=== PATIENT | male | born 1970 | race American Indian/Alaskan Native ===

== ENCOUNTER 2017-01-16 08:29 | Emergency (ER) | payer SELFPAY ==
[2017-01-16 09:43] LABS: Basophils % (Auto) 0.8 % (0.0-1.8); Eosinophils % (Auto) 1.2 % (0.0-4.3); Hemoglobin 14.4 gm/dl (11.8-15.2); Mean Corpuscular HGB Conc 32 % (32-34); Mean Corpuscular Hemoglobin 29 pg (28-32); Mean Corpuscular Volume 90 fl (84-94); Red Blood Count 4.98 M/mm3 (3.65-5.03); Red Cell Distribution Width 13.6 % (13.2-15.2); White Blood Count 10.6 K/mm3 (4.5-11.0)
[2017-01-16 09:48] LABS: Alanine Aminotransferase 26 units/L (7-56); Albumin 4.5 g/dL (3.9-5); Albumin/Globulin Ratio 1.5 %; Alkaline Phosphatase 105 units/L (35-129); Anion Gap 28 mmol/L; Blood Urea Nitrogen 16 mg/dL (9-20); Calcium 9.5 mg/dL (8.4-10.2); Carbon Dioxide 17 mmol/L (22-30); Chloride 99.4 mmol/L (98-107); Glucose 174 mg/dL (75-100); Lipase 41 units/L (13-60); Sodium 140 mmol/L (137-145); Total Protein 7.6 g/dL (6.3-8.2)
[2017-01-16] MEDS ORDERED: ZOFRAN IV ONE (10:17)
[2017-01-16] MEDS ORDERED: NACL 0.9% 1000 ML 1,000 ML IV ONE (10:42)
[2017-01-16] MEDS ORDERED: BENTYL IM ONE (10:42)
[2017-01-16] MEDS ORDERED: ATIVAN IV ONE (10:43)
--- NOTE | 2017-01-16 10:46 | Emergency Department Report ---
ED N/V/D HPI - General Chief complaint: Abdominal Pain Stated complaint: VOMITTING, COLD Time Seen by Provider: 01/16/17 10:41 Source: patient, family Mode of arrival: Wheelchair Limitations: No Limitations - History of Present Illness Initial comments: 46-year-old male with history of [id number] diabetes presenting today because of vomiting and abdominal pain. Patient states that he's had these episodes periodically every 4-6 months for the last many years. There has not been any clear reason for them. They usually resolve while he is in the emergency room. No fevers or chills. Cannot recall eating anything unusual. The symptoms started early in the morning and are primarily his nausea and vomiting nonbloody nonbilious. No associated dysuria or hematuria. - Related Data Home Medications Medication Instructions Recorded Confirmed Last Taken No Known Home Medications [No 01/16/17 01/16/17 Unknown Reported Home Medications] Allergies Allergy/AdvReac Type Severity Reaction Status Date / Time No Known Allergies Allergy Verified 01/16/17 08:49 ED Review of Systems ROS: Stated complaint: VOMITTING, COLD Other details as noted in HPI Comment: All other systems reviewed and negative Constitutional: denies: chills, fever Respiratory: denies: cough Cardiovascular: denies: chest pain Gastrointestinal: denies: nausea, vomiting Skin: denies: rash Neurological: denies: headache Psychiatric: denies: anxiety ED Past Medical Hx - Past Medical History Hx Diabetes: Yes (diet-controlled) - Surgical History Past Surgical History?: No - Social History Smoking Status: Current Every Day Smoker Substance Use Type: None - Medications Home Medications: Home Medications Medication Instructions Recorded Confirmed Last Taken Type No Known Home Medications [No 01/16/17 01/16/17 Unknown History Reported Home Medications] ED Physical Exam - General Limitations: No Limitations General appearance: alert, in distress, other (diaphoretic) - Head Head exam: Present: atraumatic - Eye Eye exam: Present: normal appearance - Neck Neck exam: Present: normal inspection - Respiratory Respiratory exam: Present: normal lung sounds bilaterally, other (tachypnic) - Cardiovascular Cardiovascular Exam: Present: regular rate, normal rhythm, normal heart sounds - GI/Abdominal GI/Abdominal exam: Present: soft. Absent: distended, tenderness - Neurological Exam Neurological exam: Present: alert, oriented X3 - Psychiatric Psychiatric exam: Present: normal affect - Skin Skin exam: Present: intact ED Course Vital Signs 01/16/17 01/16/17 01/16/17 08:52 10:05 11:00 Temperature 97.7 F Pulse Rate 76 Respiratory 29 H Rate Blood Pressure 120/71 O2 Sat by Pulse 99 100 100 Oximetry 01/16/17 01/16/17 01/16/17 12:00 13:00 14:00 Temperature Pulse Rate Respiratory Rate Blood Pressure 121/78 104/63 117/76 O2 Sat by Pulse 100 100 98 Oximetry 01/16/17 01/16/17 01/16/17 15:00 16:00 17:00 Temperature Pulse Rate Respiratory Rate Blood Pressure 112/63 125/62 115/64 O2 Sat by Pulse 99 100 100 Oximetry 01/16/17 17:18 Temperature 98.3 F Pulse Rate 56 L Respiratory 16 Rate Blood Pressure O2 Sat by Pulse Oximetry - Reevaluation(s) Reevaluation #1: 01/16/17 16:46 Symptoms improved at this time. Took multiple medications to get him comfortable , he is sleeping and no longer diaphoretic. Still finishing IV phosphate ED Medical Decision Making - Lab Data Result diagrams: 01/16/17 09:14 01/16/17 09:14 - Medical Decision Making probable cyclic vomiting syndrome IV, labs, meds labs show hypophosphatemia, iv k phosphate ordered EKG shows sinus bradycardia at a rate of 58, QTC is slightly prolonged at 481, irregular baseline primarily as a patient is hyperventilating during the EKG Critical care attestation.: If time is entered above; I have spent that time in minutes in the direct care of this critically ill patient, excluding procedure time. ED Disposition Clinical Impression: Hypophosphatemia Gastritis Qualifiers: Gastritis type: unspecified gastritis Chronicity: acute Gastritis bleeding: without bleeding Qualified Code(s): K29.00 - Acute gastritis without bleeding Disposition: DISCHARGED TO HOME OR SELFCARE Is pt being admited?: No Does the pt Need Aspirin: No Condition: Stable Instructions: Gastritis (ED) Additional Instructions: Please follow up with your primary care physician in the next 3-5 days and have a routine follow up with a contour sander. Return to the ER if your symptoms worsen or you develop new symptoms. Stop using marijuana. Referrals: PRIMARY CARE, [Primary Care Provider] - 3-5 Days [facility] [Provider Group] - 3-5 Days
[2017-01-16 10:48] LABS: Platelet Count 231 K/mm3 (140-440)
[2017-01-16] MEDS ORDERED: BENADRYL IV ONE (12:22)
[2017-01-16] MEDS ORDERED: REGLAN IV ONE (12:22)
[2017-01-16 12:26] LABS: Magnesium 2.1 mg/dL (1.7-2.3); Phosphorous 1.8 mg/dL (2.5-4.5)
[2017-01-16] MEDS ORDERED: KPHOS 15 MMOL in NACL 0.9% 250ML 250 ML IV ONE (13:00)
--- NOTE | 2017-01-16 13:04 | XRay Report ---
AP CHEST: HISTORY: Shortness of breath AP view of the chest demonstrates a normal mediastinal and cardiac contour with clear lungs and normal bony and soft tissue structures. IMPRESSION: Unremarkable AP chest.
[2017-01-16] MEDS ORDERED: HALDOL IM ONE (13:54)
[2017-01-16 17:16] VITALS: BP 115/64
== END 2017-01-16 18:34 | disposition home or self-care (01) ==
LOC: ED 08:29
DX: E83.39 Other disorders of phosphorus metabolism (principal); K29.00 Acute gastritis without bleeding; E11.9 Type 2 diabetes mellitus without complications; F17.200 Nicotine dependence, unspecified, uncomplicated
CPT/HCPCS: 36415; 71010; 80053; 82962; 83690; 83735; 84100; 84484; 85025; 93005; 93010; 96361; 96365; 96366; 96372; 96375; 99284; J0500; J1200; J1630; J2060; J2405; J2765; J7030; J7050